=== PATIENT | female | born 1985 | race Caucasian/White ===

== ENCOUNTER → 2019-03-02 | Outpatient (CLI) | payer BC ==
[~2019-03-02] MED LIST: FLEXERIL PO; IBUPROFEN 800800 MG PO; KARIVA 28 DAY1 EACH PO; NORCO 5-325 TA1 EACH PO
== END ==
LOC: M.ULTRA 08:37
DX: R92.2 Inconclusive mammogram (principal); Z88.8 Allergy status to other drugs, medicaments and biological substances

== ENCOUNTER → 2021-04-08 | Outpatient (CLI) | payer OTHER | LOC: M.ULTRA 04-02 12:42 | PROVIDERS: ATTEND Family Medicine | DX: E04.1 Nontoxic single thyroid nodule (principal); R92.2 Inconclusive mammogram; N63.0 Unspecified lump in unspecified breast ==

== ENCOUNTER → 2021-05-01 | Outpatient (CLI) | payer OTHER | LOC: M.RAD 09:40 | PROVIDERS: ATTEND Family Medicine | DX: N63.0 Unspecified lump in unspecified breast (principal); R92.2 Inconclusive mammogram ==